=== PATIENT | female | born 1950 | race Native Hawaiian/Other Pacific Islander ===

== ENCOUNTER 2019-07-13 09:12 | Outpatient (CLI) | payer OTHER | END 2019-07-13 23:28 | disposition home or self-care (01) | LOC: MRI 09:12 | DX: M54.5 Low back pain (principal) ==

== ENCOUNTER 2019-08-01 18:15 | Outpatient (CLI) | payer BC | END 2019-08-01 19:37 | disposition home or self-care (01) | LOC: LAB 18:15 | DX: N39.0 Urinary tract infection, site not specified (principal) | CPT/HCPCS: 87077; 87086; 87088; 87186 ==

== ENCOUNTER 2021-02-19 09:36 | Outpatient (CLI) | payer BC ==
[2021-02-19 10:03] LABS: PLATELET COUNT 202 K/uL (152-353)
[2021-02-19 10:21] LABS: POTASSIUM 3.8 mmol/L (3.6-5.2)
== END 2021-02-19 20:49 | disposition home or self-care (01) ==
LOC: LABW 09:36
PROVIDERS: ATTEND Internal Medicine
DX: Z00.00 Encounter for general adult medical examination without abnormal findings (principal); Z13.820 Encounter for screening for osteoporosis; E55.9 Vitamin D deficiency, unspecified; E11.9 Type 2 diabetes mellitus without complications
CPT/HCPCS: 36415; 80053; 80061; 81000; 82043; 82306; 83036; 84439; 84443; 85027

== ENCOUNTER 2021-12-04 15:47 | Inpatient (IN) | payer BC ==
[~2021-12-04] VITALS: Ht 167.6 cm; Wt 99.8 kg
[2021-12-04 16:42] VITALS: BP 140/53; TEMP 98.1; Ht 167.6 cm; Wt 99.8 kg
[2021-12-04 20:25] VITALS: BP 127/47; TEMP 98.1
[2021-12-05] MEDS ORDERED: PIOGLITAZONE HY15 MG PO (16:05)
[2021-12-05] MEDS ORDERED: FENOFIBRATE160 MG PO (16:05)
[2021-12-05] MEDS ORDERED: CYCLOBENZAPRINE10 MG PO (16:06)
[2021-12-05] MEDS ORDERED: CHLORTHALID25 MG PO (16:07)
[2021-12-05] MEDS ORDERED: ROSUVASTATIN CA10 MG PO (16:08)
[2021-12-05] MEDS ORDERED: DULOXETINE HYDR60 MG PO (16:09)
[2021-12-05] MEDS ORDERED: INSU100I2 SC (16:10)
[2021-12-05] MEDS ORDERED: LIDOCAINE PAIN RE4 % TOP (16:12)
[2021-12-05] MEDS ORDERED: PROAIR HFA INH (16:13)
[2021-12-05] MEDS ORDERED: PERCOCET1 TA3 PO (16:13)
[2021-12-05] MEDS ORDERED: ASPIRIN 81 LOW81 MG PO (16:14)
[2021-12-05] MEDS ORDERED: CHOLECALCIFEROL PO (16:15)
[2021-12-05] MEDS ORDERED: ALBUSOL INH (16:16)
[2021-12-05] MEDS ORDERED: NOVOLIN R100 UNIT/1 SC (16:17)
[2021-12-07 20:00] VITALS: BP 101/39; TEMP 98.5
[2021-12-08 08:00] VITALS: BP 127/63; TEMP 97.7
[2021-12-08 20:36] VITALS: BP 129/49; TEMP 99
[2021-12-09 08:36] VITALS: BP 121/70; TEMP 98
[2021-12-09 20:45] VITALS: BP 138/42; TEMP 98.4
[2021-12-10 20:00] VITALS: BP 120/44; TEMP 99.1
[2021-12-11 20:00] VITALS: BP 127/47; TEMP 98.7
[2021-12-12 08:30] VITALS: BP 132/60; TEMP 98.3
[2021-12-12 20:01] VITALS: BP 116/35; TEMP 98.2
[2021-12-13 08:00] VITALS: BP 126/61; TEMP 97.7
[2021-12-13 20:44] VITALS: BP 114/47; TEMP 98.7
[2021-12-14 20:37] VITALS: BP 111/47; TEMP 97.9
[2021-12-15 20:00] VITALS: BP 117/40; TEMP 98.5
[2021-12-16 20:00] VITALS: BP 106/51; TEMP 98.4
[2021-12-17 08:00] VITALS: BP 108/50; TEMP 97.9
[2021-12-17 20:19] VITALS: BP 131/45; TEMP 98.3
[2021-12-18 08:31] VITALS: BP 113/53; TEMP 98.2
[2021-12-18 20:16] VITALS: BP 123/56; TEMP 101.1
[2021-12-18 23:00] LABS: PLATELET COUNT 159 K/uL (152-353)
[2021-12-18 23:10] LABS: POTASSIUM 3.8 mmol/L (3.6-5.2)
[2021-12-19 05:56] VITALS: TEMP 100.1
[2021-12-19 09:09] VITALS: BP 102/44; TEMP 98.7
[2021-12-19] MEDS ORDERED: DULO60CA2 PO (11:18)
[2021-12-19 20:00] VITALS: BP 109/48; TEMP 100.3
[2021-12-19 22:00] VITALS: TEMP 98.4
[2021-12-20 08:00] VITALS: BP 115/51; TEMP 98.3
[2021-12-20 20:00] VITALS: BP 106/39; TEMP 98.4
[2021-12-21 08:00] VITALS: BP 121/41; TEMP 97.8
[2021-12-21] MEDS ORDERED: LEVOFLOXACIN500 MG PO (08:49)
== END 2021-12-21 11:13 | disposition home health service (06) | DRG 560 ==
LOC: SWING 15:47 → MED/SURG 16:00
PROVIDERS: ADMIT Internal Medicine Endocrinology, Diabetes & Metabolism; ATTEND Internal Medicine Endocrinology, Diabetes & Metabolism
DX: S82.101D Unspecified fracture of upper end of right tibia, subsequent encounter for closed fracture with routine healing (principal); S82.401D Unspecified fracture of shaft of right fibula, subsequent encounter for closed fracture with routine healing; S22.42XD Multiple fractures of ribs, left side, subsequent encounter for fracture with routine healing; Z91.81 History of falling; E11.9 Type 2 diabetes mellitus without complications; M62.81 Muscle weakness (generalized); R26.2 Difficulty in walking, not elsewhere classified; R26.81 Unsteadiness on feet; Z74.1 Need for assistance with personal care; J98.11 Atelectasis; I25.10 Atherosclerotic heart disease of native coronary artery without angina pectoris; I10 Essential (primary) hypertension; E78.5 Hyperlipidemia, unspecified; F32.9 Major depressive disorder, single episode, unspecified; R26.89 Other abnormalities of gait and mobility; M25.531 Pain in right wrist; G62.9 Polyneuropathy, unspecified; M47.816 Spondylosis without myelopathy or radiculopathy, lumbar region; J45.909 Unspecified asthma, uncomplicated; R53.1 Weakness
CPT/HCPCS: 36415; 80048; 81000; 83605; 85027; 87040; 87077; 87081; 87086; 87088; 87186; 87205; 94640; 94664; 94667; 94760; J0696; J1650; J1815